=== PATIENT | female | born 1960 | race Caucasian/White ===

== ENCOUNTER 2023-06-25 08:00 | Outpatient (NON) | payer BC, SELFPAY | END 2023-06-25 08:01 | disposition home or self-care (01) | LOC: ANHLAB 06-26 12:17 | PROVIDERS: PCP Family Medicine; Visit Provider Nurse Practitioner | DX: C44.321 Squamous cell carcinoma of skin of nose (principal) | CPT/HCPCS: 88305 ==

== ENCOUNTER 2023-07-08 14:09 | Outpatient (NON) | payer BC, SELFPAY | END 2023-07-08 14:10 | disposition home or self-care (01) | LOC: ANHLAB 14:09 | PROVIDERS: PCP Family Medicine; Visit Provider Nurse Practitioner | DX: C44.321 Squamous cell carcinoma of skin of nose (principal) | CPT/HCPCS: 88305; 88331 ==